=== PATIENT | female | born 1995 | race African-American/Black ===

== ENCOUNTER 2018-04-27 00:34 | Emergency (ER) | payer MEDICAID ==
[~2018-04-27] VITALS: Ht 160 cm; Wt 61.0 kg
[2018-04-27] MEDS ORDERED: PREDNISONE 20MG TABLET PO ONE (07:30)
[2018-04-27] MEDS ORDERED: ACETAMINOPHEN 500MG TABLET PO ONE (07:30)
[2018-04-27 08:01] VITALS: BP 113/73
== END 2018-04-27 08:03 | disposition home or self-care (01) ==
LOC: ER 01:34
DX: K08.89 Other specified disorders of teeth and supporting structures (principal); K05.20 Aggressive periodontitis, unspecified; J45.909 Unspecified asthma, uncomplicated
CPT/HCPCS: 81025; 99283; J7512